=== PATIENT | female | born 1960 | race African-American/Black ===

== ENCOUNTER → 2017-06-27 | Outpatient (CLI) | payer BC, OTHER ==
[~2017-06-27] MED LIST: ALBUTEROL INHAL17 GM IH; ASPIRIN325 OR; BACTRIM DS TAB1 EACH PO; ENDOCET 7.5-321 EACH PO; HYDROCODON-ACE1 EAC7 PO; IBUPROFEN 600600 M1 PO; IBUPROFEN 800800 M1 PO; NORCO 5-325 TA1 EACH PO; NORVASC 5 MG TAB5 MG PO; PERCOCET 7.5-31 EACH PO; PERCOCET 7.5-51 EACH PO; ZESTRIL40 MG PO; ZOCOR 20 MG TAB20 M1 PO; ZPAK PO
== END ==
LOC: SLEEPLAB 22:06
DX: G47.33 Obstructive sleep apnea (adult) (pediatric) (principal); G40.909 Epilepsy, unspecified, not intractable, without status epilepticus; E66.09 Other obesity due to excess calories; Z99.89 Dependence on other enabling machines and devices; Z68.43 Body mass index [BMI] 50.0-59.9, adult

== ENCOUNTER → 2018-08-31 | Outpatient (CLI) | payer BC, OTHER | LOC: ULTRA 09:48 | DX: E05.90 Thyrotoxicosis, unspecified without thyrotoxic crisis or storm (principal); E07.89 Other specified disorders of thyroid ==

== ENCOUNTER → 2021-01-11 | Outpatient (CLI) | payer BC, OTHER | LOC: RAD 09:51 | PROVIDERS: ATTEND Nurse Practitioner | DX: M47.814 Spondylosis without myelopathy or radiculopathy, thoracic region (principal); M47.816 Spondylosis without myelopathy or radiculopathy, lumbar region; M46.1 Sacroiliitis, not elsewhere classified; M25.78 Osteophyte, vertebrae ==